=== PATIENT | female | born 1985 ===

== ENCOUNTER 2018-08-14 17:32 | Emergency (ER) | payer OTHER ==
[2018-08-14 17:38] VITALS: BMI 33.2
[2018-08-14 17:43] VITALS: TEMP 98.6
--- NOTE | 2018-08-14 18:01 | ED PDOC ---
Arrival/HPI - General Chief Complaint: Abnormal Skin Integrity Time Seen by Provider: 08/14/18 17:42 Historian: Patient - History of Present Illness Narrative History of Present Illness (Text): 08/14/18 18:06 33yo F sustained a laceration to the L 2nd digit while at work. States that she was climbing on a stool, but slipped and fell forward, she grabbed onto the machine in front of her and sustained a laceration to her finger. Denies any numbness, decrease in ROM, other injury, has no other complaints. Past Medical History - Tetanus Immunization Tetanus Immunization: Up to Date Family/Social History Family/Social History: Unknown Family HX Allergies/Home Meds Allergies/Adverse Reactions: Allergies FISH Allergy (Verified 08/14/18 17:38) RASH Review of Systems - Review of Systems Constitutional: absent: Fatigue, Fevers Skin: Laceration. absent: Rash, Pruritis, Skin Lesions Neurological: absent: Headache, Dizziness Physical Exam Vital Signs Temp Pulse Resp BP Pulse Ox 08/14/18 17:39 98.6 F 78 18 139/80 98 Temperature: Afebrile Blood Pressure: Normal Pulse: Regular Respiratory Rate: Normal Appearance: Positive for: Well-Appearing, Non-Toxic, Comfortable Pain Distress: Mild Mental Status: Positive for: Alert and Oriented X 3 - Systems Exam Upper Extremity: Present: Normal ROM, NORMAL PULSES, Neurovascularly Intact, Capillary Refill < 2s, Norm 2-Pt Discrimination, Other (L 2nd digit : +3 cm jagged V shaped laceration to the mid volar aspect of the digit, + 1 cm laceration to the dosral mid digit, +FROM, (-) visible FB. ) Neurological: Present: GCS=15, CN II-XII Intact, Speech Normal, Motor Func Grossly Intact, Normal Sensory Function Skin: Present: Warm, Dry, Normal Color. No: Rashes Psychiatric: Present: Alert, Oriented x 3, Normal Insight, Normal Concentration Medical Decision Making ED Course and Treatment: 08/14/18 17:57 Plan : - kefelx po - tylenol po - laceration repair - XR L 2nd digit - plastics consult XR L 2nd digit : no FB, no fracture, no dislocation, as read by PA Case d/w Dr. Ricardo, who came and evaluated the patient in the Emergency room. Laceration repair was performed by him at the bedside. On re-evaluation, patient in no acute distress. She tolerated the procedure well. Patient instructed to follow-up with Dr. Ricardo as instructed by him without fail. Advised to take medication as prescribed. Return to the emergency room at any time for any new or worsening symptoms. Patient states she fully agrees with and understands discharge instructions. States that she agrees with the plan and disposition. Verbalized and repeated discharge instructions and plan. I have given the patient opportunity to ask any additional questions. - PA / [employer] / Resident Statement MD/DO has reviewed & agrees with the documentation as recorded. Disposition/Present on Arrival - Present on Arrival Any Indicators Present on Arrival: No History of DVT/PE: No History of Uncontrolled Diabetes: No Urinary Catheter: No History of Decub. Ulcer: No History Surgical Site Infection Following: None - Disposition Have Diagnosis and Disposition been Completed?: Yes Diagnosis: Finger laceration Disposition: HOME/ ROUTINE Disposition Time: 21:30 Patient Plan: Discharge Condition: STABLE Discharge Instructions (ExitCare): Laceration Repair With Stitches (DC), Common Finger Injuries Print Language: POLISH Prescriptions: Cephalexin [Keflex] 500 mg PO Q6 #28 capsule Referrals: [facility] [Primary Care Provider] - Follow up with primary Joanna Ricardo MD [Staff Provider] - Follow up with primary Forms: [facility] (Italian), WORK NOTE
[2018-08-14] MEDS ORDERED: Lidocaine 1% 5ml Abboject IJ STA (19:38)
[2018-08-14] MEDS ORDERED: Lidocaine 1% Inj (20ml) IJ STA (19:42)
[2018-08-14 22:02] VITALS: BP 116/68; PULSE 69; RESP 20; O2SAT 100
--- NOTE | 2018-08-15 13:27 | RAD ---
PROCEDURE: Left Hand and 2nd digit radiographs. HISTORY: trauma COMPARISON: None. FINDINGS: BONES: Normal. No fracture. JOINTS: Normal. No osteoarthritic changes. SOFT TISSUES: Soft tissue swelling 2nd digit. No evidence of foreign body OTHER FINDINGS: None. IMPRESSION: No fracture or foreign body
--- NOTE | 2018-08-20 04:22 | OP ---
PROCEDURE DATE: 08/14/2018 SURGEON: Joanna Ricardo MD. PREOPERATIVE DIAGNOSES: 1. Left index finger total of 4.5 cm laceration, 3 cm on the radial aspect and 1.5 cm on the dorsal aspect. 2. Possible left index finger radial digital nerve laceration. POSTOPERATIVE DIAGNOSES: 1. Left index finger total of 4.5 cm laceration, 3 cm on the radial aspect and 1.5 cm on the dorsal aspect. 2. Possible left index finger radial digital nerve laceration. PROCEDURES: 1. Exploration of penetrating wound of left index finger. 2. Complex repair of 4.5 cm left index finger laceration. TYPE OF ANESTHESIA: 1. Regional. 2. Left index finger radial digital nerve block. 3. Left index finger ulnar digital nerve block. INDICATION FOR PROCEDURE: This is a 33-year-old right hand dominant female who was working when her left index finger has got stuck in a gear contraption at work. She sustained two lacerations to the left index finger and had numbness in the radial aspect of the volar tip. X-ray done by the emergency room did not show any foreign body or any fractures. There was concern for nerve injuries, so I was consulted. I came emergently to see the patient. On physical exam, left index finger has 2 lacerations. There was 1.5 cm laceration on the dorsal aspect of the left index finger and 3 cm laceration in the radial and volar aspect. She had a positive Tinel sign that went distal. She had decreased sensation in the left radial digital nerve volar aspect. Sensation to the ulnar side appeared intact. She was able to grossly flex and extend the DIP and PIP joints grossly indicating grossly intact FDP and FDS tendons and extensor tendon appeared intact. The bones were nontender. I explained to the patient and her through a blueberry grower that I would explore through wounds. She likely has a radial digital nerve injury. She may have an underlying tendon injury that is partial. I told I will irrigate the wound. She needs to be on antibiotics. I told her that if there is evidence of a nerve injury, it has to be fixed in a timely manner or she risks neuromas, scarring, and possible tendon rupture. Patient and her understood this and wished to proceed. DESCRIPTION OF PROCEDURE: 0.5% Marcaine mixed with 1% lidocaine plain was used in the left index finger radial ulnar digital nerve block. After allowing sufficient time for the anesthetic to take effect, the wound was thoroughly irrigated with normal saline and dilute Betadine. The area was prepped and draped in usual clean and sterile manner. I started the operation by exploring the volar radial aspect 3-cm wound by making incision larger with a scissor. I dissected out the radial digital nerve. There was a lacerated fascicle on the dorsal aspect. The extensor tendon after exploration, after making incision larger, appeared intact. I then debrided the skin edges, undermining the skin and taking the tension off the wound closure. Skin with a combination of 4-0 and 5-0 Prolene interrupted suture. Then placed Xeroform dry sterile dressing, Henry wrapped. After doing this, the patient tolerated the procedure well. Discharged home with oral antibiotics. I explained to the patient and her that they need to follow up with me in few days and they likely need to have more surgery for exploration of the flexor tendon, repair of the lacerated radial digital nerve, risk for permanent paresthesias, neuromas, stiffness, scarring, and possible tendon rupture in the future. Joanna Ricardo MD
== END 2018-08-14 21:58 | disposition home or self-care (01) ==
LOC: ED 17:32
DX: S61.211A Laceration without foreign body of left index finger without damage to nail, initial encounter (principal); W01.118A Fall on same level from slipping, tripping and stumbling with subsequent striking against other sharp object, initial encounter; Y92.89 Other specified places as the place of occurrence of the external cause; Y99.0 Civilian activity done for income or pay